=== PATIENT | male | born 2000 | race Caucasian/White ===

== ENCOUNTER 2023-01-18 18:17 | Emergency (ER) | payer BC, SELFPAY ==
--- NOTE | ~2023-01-18 | XR_ITS ---
EXAMINATION: XR HAND, LEFT CLINICAL INFORMATION: Boxer's fracture. COMPARISON: None available. TECHNIQUE: PA, lateral, and oblique views of the left hand. FINDINGS: Comminuted fracture of the proximal fifth phalanx with dorsal angulation of the distal fragment and mild impaction. No additional fractures. Carpal row alignment is maintained. Soft tissue swelling surrounding the fracture site. No unexpected radiopaque foreign bodies. XR/XR hand LT min 3V IMPRESSION: Comminuted fracture of the proximal fifth phalanx with mild angulation and impaction.
[2023-01-18 18:34] VITALS: BP 116/73; PULSE 60; RESP 16; TEMP 37; O2SAT 99; BMI 22.6
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
== END 2023-01-18 21:38 | disposition home or self-care (01) ==
PROVIDERS: Emergency Provider Emergency Medicine
DX: S62.617A Displaced fracture of proximal phalanx of left little finger, initial encounter for closed fracture (principal); W22.09XA Striking against other stationary object, initial encounter; Y93.89 Activity, other specified; Y92.9 Unspecified place or not applicable; Y99.9 Unspecified external cause status
CPT/HCPCS: 29130; 73130; 99282; 99283

== ENCOUNTER 2023-01-25 11:07 | Outpatient (AMB) | payer BC, SELFPAY ==
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
[2023-01-25 11:22] VITALS: BMI 22.5
== END 2023-01-25 11:54 | disposition home or self-care (01) ==
PROVIDERS: Visit Provider Physician Assistant
DX: S62.617A Displaced fracture of proximal phalanx of left little finger, initial encounter for closed fracture (principal)
CPT/HCPCS: 99204

== ENCOUNTER → 2023-01-25 11:07 | Outpatient (BNVA) | payer BC, SELFPAY | PROVIDERS: Visit Provider Physician Assistant ==

== ENCOUNTER 2023-01-29 08:58 | Day surgery (SDC) | payer BC, SELFPAY ==
--- NOTE | 2023-01-26 09:13 | P.CONAN_ITS ---
Documented by User: Delia Killian NP 01/26/23 09:14 HPI - Anesthesia Eval Consult details Narrative: 22yo M for Left Closed vs Open Reduction left small finger PMFSH Active Problems Active Problems: All Active Problems (Updated 01/25/23 @ 11:54 by Freddy Damian PA-C) Fracture of metacarpal of left hand, closed (Acute) Past Medical History Medical History (Updated 01/25/23 @ 11:54 by Freddy Damian PA-C) No pertinent past medical history Surgical History Surgical History (Updated 01/25/23 @ 11:16 by ABY Quintanilla) History of facial surgery Social History Social History (Updated 01/25/23 @ 11:16 by ABY Quintanilla) Patient Tobacco Use Status: Current everyday Tobacco user Tobacco use type: Cigarette Cigarettes Per Day: 8 Second Hand Smoke Exposure: No Use of substances other than those prescribed or required for medical reasons: No Are you DNR?: No Advance Directives: No Advance Directives Information Provided: Yes Advance Directives on File: No Current occupational status: employed 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, 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 Meds Allergies Allergy/AdvReac Type Severity Reaction Status Date / Time No Known Allergies Allergy Verified 01/25/23 11:15 Home Medications Medication Instructions Recorded Confirmed Last Taken Type No Known Home Meds 01/25/23 01/25/23 Unknown History Exam Exam Date and Time: January 26, [id number] Assessment and Plan Assessment Anesthesia Assessment: Chart Reviewed Documented by User: Bryce Thompson MD 01/29/23 11:27 PMFSH Past Medical History Medical History (Updated 01/25/23 @ 11:54 by Freddy Damian PA-C) No pertinent past medical history Family History Family history of problems with anesthesia: No Surgical History Surgical History (Updated 01/25/23 @ 11:16 by ABY Quintanilla) History of facial surgery History of Problems with Anesthesia: No Social History Social History (Updated 01/25/23 @ 11:16 by Viki Harris Roxana) Patient Tobacco Use Status: Current everyday Tobacco user Tobacco use type: Cigarette Cigarettes Per Day: 8 Second Hand Smoke Exposure: No Use of substances other than those prescribed or required for medical reasons: No Are you DNR?: No Advance Directives: No Advance Directives Information Provided: Yes Advance Directives on File: No Current occupational status: employed 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, 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 Meds Allergies Allergy/AdvReac Type Severity Reaction Status Date / Time No Known Allergies Allergy Verified 01/25/23 11:15 Home Medications Medication Instructions Recorded Confirmed Last Taken Type No Known Home Meds 01/25/23 01/25/23 Unknown History Exam Airway Mallampati Class: II TM Dist: >3cm Neck ROM: Full Heart: rrr Lungs: cta Assessment and Plan Assessment Anesthesia Assessment: Anesthesia Plan Discussed Final Anesthetic Review Family History of Problems with Anesthesia: No History of Problems with Anesthesia: No NPO: Yes ASA Class: II Final Preanesthetic Review: No Changes in Pt Med Stat, Meds/Allgs Chart Reviewed and Consent Obtained/Reviewed Patient Risk: Low Procedure Risk: Low Anesthetic Plan Anesthetic Plan: GA and Agree w/ Assess. and Plan Disposition: Standard PACU
[2023-01-29] VITALS (8 sets, daily range): BP systolic 109–129; BP diastolic 59–79; PULSE 53–72; RESP 16; TEMP 36.6–37.1; O2SAT 99–100; BMI 22.5
--- NOTE | ~2023-01-29 | FL_ITS ---
EXAMINATION: XR FLUOROSCOPY WITH IMAGES CLINICAL INFORMATION: Closed versus open reduction of small finger. COMPARISON: Previous left hand x-ray 01/18/2023 TECHNIQUE: Fluoroscopy Supervised By: Dr. Audrey Lisa. Fluoroscopy Time: 7.80. Cumulative Dose: 0.2079 mGy. DAP: 0.0126 Gycm2. Images: 3. FINDINGS: Images demonstrate 2 K wires or pins transfixing fracture of proximal phalanx fifth finger with improved alignment. FL/FL guidance in OR IMPRESSION: Across the guidance for ORIF of left fifth finger fracture
--- NOTE | 2023-01-29 08:14 | W.PM.OPN ---
Operative Note Operative Note Date of Service: 01/29/23 Narrative: Operative Note Narrative: Preop diagnosis: 1. left small finger proximal phalanx fracture Postop diagnosis: Same Procedure: 1. left small finger proximal phalanx fracture CRPP 2. Ulnar nerve block Surgeon: Audrey Lisa MD Anesthesia: General Anesthesia Findings: finger fracture Implants: 0.045 K-wires times x2 Tourniquet time: None EBL: Minimal Specimen: None Drains: None Complications: None Disposition: Brought to the recovery room in stable condition Plan: Follow-up in 10-14 days for a wound check, postop radiographs and for placement in a short-arm finger spica cast Anticipate K-wire removal in 4 weeks based on interval bony healing Educate the patient that full fracture healing anticipated in approximately 8-12 weeks. Indications: The patient is 22 years old with left small finger proximal phalanx fracture with displacement . The risks and benefits of operative treatment, including but not limited to risk of damage to blood vessels, nerves, tendons, infection, recurrence, delayed or nonunion of fracture, persistent pain or numbness, incomplete resolution of preoperative symptoms, or need for further surgery were discussed with the patient and they wished to proceed with surgery. Procedure: Once consent was obtained patient was brought back to the operating suite and placed in the operating table in a supine position. . Perioperative antibiotics and general anesthesia was administered by the anesthesia team. A tourniquet was applied to the proximal aspect of the left upper extremity and the limb was prepped and draped in a standard surgical fashion. Tourniquet was not inflated during the case. The FluoroScan was used during the case to assist with our fracture reduction and placement of all implants. A closed reduction was performed on the patient's left small finger proximal phalanx fracture. I placed the 1st 0.045 K-wire through the radial base of the left small finger proximal phalanx. This was advanced across the fracture site and into the shaft. A 2nd 0.045 K-wire was then advanced through the ulnar base of the small finger. It was also advanced across the fracture site and down the shaft of the proximal phalanx. Fracture alignment was assessed for both angular and rotational malalignment. Once satisfied with our fracture reduction and implant placement, the K-wires were bent and cut short and pin caps applied. Final fluoroscopic images were then obtained. The wounds were copiously irrigated with normal saline. An ulnar nerve block was then performed by infiltrating about the ulnar nerve at the wrist with some 1% lidocaine with epinephrine for postop pain control. A Sterile dressing and short volar splint extending to the forearm was applied. The patient appears to have tolerated the procedure well and with no complications. All digits were well vascularized at the conclusion of the case.
[2023-01-29] MEDS: Lactated Ringers 1,000 ML 100 ML IVCONT (09:30)
--- NOTE | 2023-01-29 15:06 | MHC.SHP ---
Pre-Procedural Eval Section A Date of Service: 01/29/23 The patient is an INPATIENT: No Changes since office visit: No Cold of Flu in the past 2 weeks, No New Medical Problems, No Changes in Medication and No Patient answered all questions The History & Physical has been completed within 30 days and I have reviewed it.: Yes Section B Chief Complaint: Displaced fracture of proximal phalanx of left lit Allergies: Allergies Allergy/AdvReac Type Severity Reaction Status Date / Time No Known Allergies Allergy Verified 01/25/23 11:15 Plan I have reviewed the history and physical and performed a pertinent physical examination on my patient. No changes have occurred unless specified. Time Spent With Patient Time: Total time managing care of this patient today ____ minutes.
== END 2023-01-29 16:24 | disposition home or self-care (01) ==
PROVIDERS: Visit Provider Orthopaedic Surgery
PROC: (CPT 26727; principal; 2023-01-29 10:30)
DX: S62.617A Displaced fracture of proximal phalanx of left little finger, initial encounter for closed fracture (principal); W22.09XA Striking against other stationary object, initial encounter; Y93.55 Activity, bike riding; Y92.821 Forest as the place of occurrence of the external cause; Y99.8 Other external cause status; Z98.890 Other specified postprocedural states; F17.210 Nicotine dependence, cigarettes, uncomplicated
CPT/HCPCS: 26727; J0690; J2405; J2795; J3010

== ENCOUNTER → 2023-01-29 08:58 | Outpatient (BNV) | payer BC, SELFPAY | PROVIDERS: Visit Provider Orthopaedic Surgery | DX: S62.617A Displaced fracture of proximal phalanx of left little finger, initial encounter for closed fracture (principal) | CPT/HCPCS: 26727 ==

== ENCOUNTER 2023-02-07 08:07 | Outpatient (REF) | payer BC, SELFPAY ==
--- NOTE | ~2023-02-07 | XR_ITS ---
EXAMINATION: XR HAND, LEFT CLINICAL INFORMATION: Pain out of splint COMPARISON: Left finger radiograph from 01/18/2023 TECHNIQUE: PA, lateral, and oblique views of the left hand. FINDINGS: Status post placement of 2 Amaya wires traversing/stabilizing known comminuted fifth proximal phalangeal comminuted fracture. Joint spaces and alignment are otherwise maintained. Soft tissues are unremarkable. XR/XR hand LT min 3V IMPRESSION: Status post placement of 2 Amaya wires traversing/stabilizing known comminuted fifth proximal phalangeal comminuted fracture.
== END 2023-02-07 08:08 | disposition home or self-care (01) ==
LOC: HO.HOSX 08:07
PROVIDERS: Visit Provider Physician Assistant
DX: S62.317D Displaced fracture of base of fifth metacarpal bone, left hand, subsequent encounter for fracture with routine healing (principal)
CPT/HCPCS: 29085; 73130

== ENCOUNTER 2023-02-07 10:38 | Outpatient (AMB) | payer BC, SELFPAY ==
--- NOTE | 2023-02-07 08:06 | A.OFFVIS_ITS ---
Intake Intake Visit Reasons: PO-Lt SM Finger ORIF vs CRPP 01/29 Intake Note: Nathanael ndiaye 22 year old male presents today for a post operative left small finger proximal phalanx fracture CRPP, DOS 01/29/23. Patient reports he is doing well, states some discomfort at pin site. Allergies No Known Allergies Allergy (Verified 02/07/23 10:45) HPI PO-Lt SM Finger ORIF vs CRPP 01/29 HPI Details 22-year-old male who returns to the [facility] today for post-op left small finger CRPP, 01/29/23. He continues to have mild discomfort in his finger but is doing well overall. He has no other concerns today. 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 There is no drainage. NVI. Office Procedures Casting/Splints 69840-Irum/Wrist Cast Application Procedure code (CPT) selection complete Results Reviewed Results Reviewed: Xrays were obtained in the office today and personally reviewed by me of the left hand show intact pinn with stable fracture reduction Assessment & Plan Assessment & Plan (1) Fracture of metacarpal of left hand, closed: Code(s): S62.309A - Unspecified fracture of unspecified metacarpal bone, initial encounter for closed fracture Qualifiers: Encounter type: subsequent encounter Metacarpal bone: fifth Metacarpal location: base Fracture healing: with routine healing Fracture alignment: displaced Qualified Code(s): S62.317D - Displaced fracture of base of fifth metacarpal bone, left hand, subsequent encounter for fracture with routine healing Plan Pins sites were cleaned and redressed. Anticipate K-wire removal in 4 weeks based on interval bony healing. Educated the patient that full fracture healing anticipated in approximately 8-12 weeks.He was placed in a short arm finger spica cast. No lifting more than cellphone with the left hand. He can return to work with no use of his left hand and he will see me back in 4 weeks cast off, x-rays and potential pin removal. Orders: Orders XR hand LT min 3V Today M79.642 - Pain in left hand Patient Instructions: Scribed for Freddy Damian PA-C, by Shabbir Quintanilla medical transport specialist, on 02/07/2023 at 10:45 AM EST. Rosa, Freddy Damian PA-C, have personally reviewed and agree with the information entered by the scribe. Coding Level of Care Code Global (62156) Diagnoses Closed displaced fracture of base of fifth metacarpal bone of left hand with routine healing, subsequent encounter S62.317D Encounter type: subsequent encounter Metacarpal bone: fifth Metacarpal location: base Fracture healing: with routine healing Fracture alignment: displaced CPT Codes Casting - CPT: 50095-Zauy/Wrist Cast Application ([id number])
== END 2023-02-07 12:14 | disposition home or self-care (01) ==
PROVIDERS: Visit Provider Physician Assistant
DX: S62.317D Displaced fracture of base of fifth metacarpal bone, left hand, subsequent encounter for fracture with routine healing (principal)
CPT/HCPCS: 29085; 99024

== ENCOUNTER 2023-03-07 09:10 | Outpatient (REF) | payer BC, SELFPAY ==
--- NOTE | ~2023-03-07 | XR_ITS ---
EXAMINATION: XR HAND, LEFT CLINICAL INFORMATION: Pain. COMPARISON: Prior radiographs, most recently 02/07/2023. TECHNIQUE: PA, lateral, and oblique views of the left hand. FINDINGS: There is mild disuse osteopenia. There is well-maintained alignment of fifth proximal phalangeal fracture fragments. Fracture lines of the fifth proximal phalanx are less well appreciated than was seen previously. A small periarticular calcification is seen adjacent to the fifth proximal interphalangeal joint. No dislocation is seen. The proximal and distal carpal rows are intact. There is mild generalized soft tissue swelling of the fifth finger, without gas or foreign body noted. XR/XR hand LT min 3V IMPRESSION: There is well-maintained alignment of a comminuted fracture of the left fifth proximal phalanx. No hardware failure or loosening is seen. Fracture lines are now less well appreciated than was noted previously, suggesting some interim healing.
== END 2023-03-07 09:11 | disposition home or self-care (01) ==
LOC: HO.HOSX 09:10
PROVIDERS: Visit Provider Physician Assistant
DX: S62.317D Displaced fracture of base of fifth metacarpal bone, left hand, subsequent encounter for fracture with routine healing (principal)
CPT/HCPCS: 73130

== ENCOUNTER 2023-03-07 10:17 | Outpatient (AMB) | payer BC, SELFPAY ==
--- NOTE | 2023-03-07 10:20 | A.OFFVIS_ITS ---
Intake Intake Visit Reasons: PO-Lt SM Finger CRPP 01/29-cast off w/xrays Intake Note: Nathanael ndiaye 22 year old 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 male presents today for a post operative left small finger proximal phalanx fracture CRPP, DOS 01/29/23. Cast off and xrays updated. Patient reports numbness in his DIP of his 4th and 3rd digits. Allergies No Known Allergies Allergy (Verified 03/07/23 10:34) HPI PO-Lt SM Finger CRPP 01/29-cast off w/xrays HPI Details 22-year-old male who returns to the [facility] today for post-op left small finger CRPP, 01/29/23. He states he has no pain but he does c/o numbness at the DIP of his 3rd and 4th digits. He is doing well overall and has no concerns today. 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 No redness or drainage. He is lacking about 2 degrees of extension in the small finger. He can make a closed fist however his ring and index finger flexion is 90 degrees at MCP and 45 degrees at PIP. Passively I can get him to 90 degrees. NVI. Results Reviewed Results Reviewed: Xrays were obtained in the office today and personally reviewed by me of the left hand show intact pinn with stable fracture reduction Assessment & Plan Assessment & Plan (1) Fracture of metacarpal of left hand, closed: Code(s): S62.309A - Unspecified fracture of unspecified metacarpal bone, initial encounter for closed fracture Qualifiers: Encounter type: subsequent encounter Fracture alignment: displaced Fracture healing: with routine healing Metacarpal bone: fifth Metacarpal location: base Qualified Code(s): S62.317D - Displaced fracture of base of fif th metacarpal bone, left hand, subsequent encounter for fracture with routine healing Plan Pins were removed in the office. Patient tolerated this procedure well. I encouraged him to avoid soaking the area for another 5 days. He can clean with warm soapy water tomorrow. He will avoid any type of lifting, pushing, pulling or carrying greater than a cellphone for the next 6 weeks. He will continue with light duty restrictions at work. 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 I would like to see him back in 6 week s with new x-rays, sooner if needed. Orders: Orders XR hand LT min 3V Today M79.642 - Pain in left hand OT Evaluation and Treatment Today S62.309A - Unspecified fracture of unspecified metacarpal bone, initial encounter for closed fracture Patient Instructions: Scribed for Freddy Damian PA-C, by Shabbir Quintanilla medical attendant, on 03/07/2023 at 10:30 AM EST. I, Freddy Damian PA-C, have personally reviewed and agree with the information entered by the scribe. Coding Level of Care Code Global (66387) Diagnoses Closed displaced fracture of base of fifth metacarpal bone of left hand with routine healing, subsequent encounter S62.317D Encounter type: subsequent encounter Fracture alignment: displaced Fracture healing: with routine healing Metacarpal bone: fifth Metacarpal location: base
== END 2023-03-07 11:03 | disposition home or self-care (01) ==
PROVIDERS: Visit Provider Physician Assistant
DX: S62.317D Displaced fracture of base of fifth metacarpal bone, left hand, subsequent encounter for fracture with routine healing (principal)
CPT/HCPCS: 99024

== ENCOUNTER 2023-03-16 14:30 | Outpatient (RCR) | payer BC, SELFPAY ==
--- NOTE | 2023-03-23 09:39 | MHC.OT.DC ---
[address] [phone] F: [phone] Occupational Therapy Discharge Note Patient Name: Nathanael Powers Provider: Freddy Damian Diagnosis: Left D5 prox phalanx fx, post-op CRPP 01/29/23 Date of Surgery: 01/29/23 Date of Evaluation: 03/09/23 Date of Discharge: 03/23/23 Treatments to Date: 4 Cancellations to Date: No Shows to Date: Discharge Status: Achieved Goals Improved Function Independent with HEP Discharge Summary: AROM improved and equal to PROM . Digit .5 cm to DPC PIP jt ext to 10 deg Pt is indep with his HEP . I anticipated continued improvement in ROM and hand strength with HEP and daily use Skilled OT not андрей Pt to schedule with Dermatology for nail condition and follow up with Orthopedics. Electronically Signed By: Alva Sandoval OT CHT CLT Reviewed/agree with student documentation: Therapist: Stacie Moseley, MIRANDAR/L CHT Please Sign and return to therapist, thank you for your referral.
== END 2023-03-23 09:40 | disposition home or self-care (01) ==
LOC: HO.OT 14:30
PROVIDERS: Visit Provider Physician Assistant
DX: S62.317D Displaced fracture of base of fifth metacarpal bone, left hand, subsequent encounter for fracture with routine healing (principal)
CPT/HCPCS: 29130; 97110; 97140; 97165

== ENCOUNTER 2023-03-21 06:00 | Outpatient (REF) | payer BC, SELFPAY ==
--- NOTE | ~2023-03-21 | XR_ITS ---
EXAMINATION: XR HAND, LEFT CLINICAL INFORMATION: Left hand pain. Fracture. COMPARISON: Multiple priors, most recent left hand radiographs dated 01/18/2023. TECHNIQUE: PA, lateral, and oblique views of the left hand. FINDINGS: Chronic 5th proximal phalangeal fracture in near-anatomic alignment. There is interval new bone/callus formation as well as periosteal reaction and osseous bridging. Exact degree of osseous bridging not well evaluated on plain radiographs. No significant persistent fracture line. No dislocation. No joint space narrowing or marginal osteophytes. Diffuse osteopenia. XR/XR hand LT min 3V IMPRESSION: Chronic 5th proximal phalangeal fracture in near-anatomic alignment with interval new bone/callus formation and osseous bridging. Exact degree of osseous bridging not well evaluated on plain radiographs.
== END 2023-03-21 06:01 | disposition home or self-care (01) ==
LOC: HO.HOSX 06:00
PROVIDERS: Visit Provider Physician Assistant
DX: S62.317D Displaced fracture of base of fifth metacarpal bone, left hand, subsequent encounter for fracture with routine healing (principal)
CPT/HCPCS: 73130

== ENCOUNTER 2023-03-21 07:50 | Outpatient (AMB) | payer BC, SELFPAY ==
--- NOTE | 2023-03-21 08:03 | A.OFFVIS_ITS ---
Intake Vital Signs 3 03/21/23 08:04 Height 5 ft 10 in Weight 160 lb BMI 23.0 Intake Visit Reasons: OV-Left Middle, RF infection? DOS 01/29/23 Intake Note: Nathanael ndiaye 22 year old male presents today for a follow up of left MF&RF s/p SF CRPP, DOS 01/29/23. Patient reports swelling at his DIP in his middle and ring fingers that is tender to the touch. States he continues to attend OT who suggested patient come in to be re-evaluated. Allergies No Known Allergies Allergy (Verified 03/21/23 08:11) HPI OV-Left Middle, RF infection? DOS 01/29/23 2 HPI0 Details 22-year-old male who returns to the [facility] today for a follow-up of left middle and ring finger s/p small finger CRPP, 01/29/23. He states he has swelling at his DIP in the middle and ring finger which is tender to touch. He continues to attend occupational therapy as instructed who recommended a f/u in our office due to concerns of the nail on the ring and middle finger. He is doing well with the small finger. He does not have a history of diabetes or gout. 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 No redness or swelling. He has full ROM of all digits. NVI. He does have discoloration of the ring and middle finger. No tenderness to palpation, No evidence of hematoma or necrosis. Results Reviewed Results Reviewed: Xrays were obtained in the office today and personally reviewed by me of the left hand show healing of the base of the 5th metacarpal fracture. No evidence of other bony abnormalities Assessment & Plan Assessment & Plan (1) Fracture of metacarpal of left hand, closed: Code(s): S62.309A - Unspecified fracture of unspecified metacarpal bone, initial encounter for closed fracture Qualifiers: Encounter type: subsequent encounter Fracture alignment: displaced F racture healing: with routine healing Metacarpal bone: fifth Metacarpal location: base Qualified Code(s): S62.317D - Displaced fracture of base of fifth metacarpal bone, left hand, subsequent encounter for fracture with routine healing Plan I had phone conversation with Dr. Lisa. We reviewed x-rays images and also some images of his nail. She is not concerned for any type of acute or chronic infection from the surgery. She does recommend that he see a warehouse shipping receiving clerk or his PCP to further evaluate this condition to determine whether it is fungal or any other problem. He is content with this plan and he will continue with occupational therapy for his left small finger. He will see me back as planned in April. Orders: Orders 2 XR hand LT min 3V Today M79.642 - Pain in left hand Referrals 2 Dermatology Referral L60.8 - Other nail disorders Patient Instructions: Scribed for Freddy Damian PA-C, by Shabbir Quintanilla medical or surgical instrument maker, on 03/21/2023 at 8:00 AM EST. IFreddy PA-C, have personally reviewed and agree with the information entered by the scribe. Coding Level of Care Code Global (29162) Diagnoses Closed displaced fracture of base of fifth metacarpal bone of left hand with routine healing, subsequent encounter S62.317D Encounter type: subsequent encounter Fracture alignment: displaced Fracture healing: with routine healing Metacarpal bone: fifth Metacarpal location: base
[2023-03-21 08:04] VITALS: BMI 23.0
== END 2023-03-21 10:24 | disposition home or self-care (01) ==
PROVIDERS: Visit Provider Physician Assistant
DX: S62.317D Displaced fracture of base of fifth metacarpal bone, left hand, subsequent encounter for fracture with routine healing (principal)
CPT/HCPCS: 99024

== ENCOUNTER 2023-04-18 15:19 | Outpatient (AMB) | payer BC, SELFPAY ==
--- NOTE | 2023-04-18 15:50 | A.OFFVIS_ITS ---
Intake Intake Visit Reasons: PO-Lt SM Finger CRPP 01/29/23 Allergies No Known Allergies Allergy (Verified 03/21/23 08:11) HPI PO-Lt SM Finger CRPP 01/29/23 HPI Details 22-year-old male who returns to the [facility] today for post-op left small finger CRPP, 01/29/23. He states he his finger deformity has worsened since his last visit. He currently reports he has swelling, redness and drainage for about 2 weeks. He also experiences pain with squeezing his finger. He has no other concerns today. 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 There is redness along the distal end of both ring and middle finger with serous/pus drainage. He has full ROM of all digits. NVI. Results Reviewed Results Reviewed: X-rays of the left hand obtained in the office today show a fracture well healed. Assessment & Plan Assessment & Plan (1) Fracture of metacarpal of left hand, closed: Code(s): S62.309A - Unspecified fracture of unspecified metacarpal bone, initial encounter for closed fracture Qualifiers: Encounter type: subsequent encounter Fracture alignment: displaced Fracture healing: with routine healing Metacarpal bone: fifth Metacarpal location: base Qualified Code(s): S62.317D - Displaced fracture of base of fifth metacarpal bone, left hand, subsequent encounter for fracture with routine healing Plan Dr. Lisa was available to see the patient with me today. 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 He was placed on Augmentin 500 mg twice a day for the next 14 days. He does have an appointment with Dermatology on April 26 which he will attend. He will see us back in 2 weeks for another follow-up, sooner if symptoms worsen. He will continue light duty restrictions until his next follow-up. Orders: Orders XR hand LT min 3V Today M79.642 - Pain in left hand Medications: New amoxicillin-pot clavulanate 500-125 mg (Augmentin) 1 tab PO BID 28 tabs 0RF 14 days Patient Instructions: Scribed for Freddy Damian PA-C, by Shabbir Quintanilla medical transcription supervisor, on 04/18/2023 at 3:30 PM EST. Rosa, Freddy Damian PA-C, have personally reviewed and agree with the information entered by the scribe. Coding Level of Care Code Est Pt Level 3 (81492) Diagnoses Closed displaced fracture of base of fifth metacarpal bone of left hand with routine healing, subsequent encounter S62.317D Encounter type: subsequent encounter Fracture alignment: displaced Fracture healing: with routine healing Metacarpal bone: fifth Metacarpal location: base
== END 2023-04-18 15:57 | disposition home or self-care (01) ==
PROVIDERS: Visit Provider Physician Assistant
DX: S62.317D Displaced fracture of base of fifth metacarpal bone, left hand, subsequent encounter for fracture with routine healing (principal)
CPT/HCPCS: 99024

== ENCOUNTER 2023-04-18 16:58 | Outpatient (REF) | payer BC, SELFPAY ==
--- NOTE | ~2023-04-18 | XR_ITS ---
EXAMINATION: XR HAND, LEFT CLINICAL INFORMATION: Pain in left hand, fifth digit. COMPARISON: Multiple prior radiographs of the left hand dated 02/07/2023, 03/07/2023, 03/21/2023 and 01/18/2023. TECHNIQUE: PA, lateral, and oblique views of the left hand including a single lateral view of left fifth digit. FINDINGS: The bones and soft tissues are normal aside from a healing fracture involving the middle phalanx of the fifth digit along with some soft tissue swelling at the DIP joints involving the second and third digits. No fracture. Alignment is anatomic. Joint spaces are maintained. No erosions or soft tissue calcifications. XR/XR hand LT min 3V IMPRESSION: Healing fracture involving the middle phalanx of the fifth digit.
== END 2023-04-18 16:59 | disposition home or self-care (01) ==
LOC: HO.HOSX 16:58
PROVIDERS: Visit Provider Physician Assistant
DX: S62.317D Displaced fracture of base of fifth metacarpal bone, left hand, subsequent encounter for fracture with routine healing (principal)
CPT/HCPCS: 73130

== ENCOUNTER 2023-05-03 14:41 | Outpatient (AMB) | payer BC, SELFPAY ==
--- NOTE | 2023-05-03 14:43 | A.OFFVIS_ITS ---
Intake Intake Visit Reasons: OV-Lt SM Finger CRPP 01/29/23 Intake Note: Nathanael ndiaye 22 year old male presents today for a follow up of left small finger CRPP on 01/29/23. Patient reports he continues to have drainage in his RF and MF. Denies pain. He was seen at OR dermatology and was prescribed doxycycline 100mg BID. Allergies No Known Allergies Allergy (Verified 05/03/23 15:06) HPI OV-Lt SM Finger CRPP 01/29/23 HPI Details 22-year-old male who returns to the [facility] today for a follow-up of left small finger CRPP, 01/29/23. He was seen by OR dermatology where doxycycline 100 mg was prescribed which he is taking as instructed. He states he has no pain and reports improvement in his swelling however he does c/o drainage in his ring and middle finger. He is doing well otherwise and has no concerns today. 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 There is redness along the distal end of both ring and middle finger without obvious pus/drainage. He has full ROM of all digits. NVI. Assessment & Plan Assessment & Plan (1) Fracture of metacarpal of left hand, closed: Code(s): S62.309A - Unspecified fracture of unspecified metacarpal bone, initial encounter for closed fracture Qualifiers: Encounter type: subsequent encounter Fracture alignment: displaced Fracture healing: with routine healing Metacarpal bone: fifth Metacarpal location: base Qualified Code(s): S62.317D - Displaced fracture of base of fifth metacarpal bone, left hand, subsequent encounter for fracture with routine healing Plan At this point there is no need for surgical intervention that would appreciate any acute infection. He will attend the appointment with dermatology tomorrow and continue taking doxycycline by them. If there are any bony related issues, he will see us back, otherwise as needed. Patient Instructions: Scribed for Freddy Damian PA-C, by Shabbir Quintanilla medical terminologist, on 05/03/2023 at 2:45 PM EST. Rosa, Freddy Damian PA-C, have personally reviewed and agree with the information entered by the scribe. Coding Level of Care Code Est Pt Level 3 (86373) Diagnoses Closed displaced fracture of base of fifth metacarpal bone of left hand with routine healing, subsequent encounter S62.317D Encounter type: subsequent encounter Fracture alignment: displaced Fracture healing: with routine healing Metacarpal bone: fifth Metacarpal location: base
== END 2023-05-03 15:07 | disposition home or self-care (01) ==
PROVIDERS: Visit Provider Physician Assistant
DX: S62.317D Displaced fracture of base of fifth metacarpal bone, left hand, subsequent encounter for fracture with routine healing (principal)
CPT/HCPCS: 99213

== ENCOUNTER → 2023-05-03 14:41 | Outpatient (BNVA) | payer BC, SELFPAY | PROVIDERS: Visit Provider Physician Assistant ==

== ENCOUNTER 2024-01-05 16:15 | Emergency (ER) | payer BC, SELFPAY ==
[2024-01-05 16:25] VITALS: BP 126/78; PULSE 79; RESP 16; TEMP 36.9; O2SAT 100; BMI 23.6
--- NOTE | 2024-01-05 16:26 | ED_ITS ---
HPI - General Adult General Chief complaint: Abdominal Pain Stated complaint: naseous/abd inj wondering if the cause? Time Seen by Provider: 01/05/24 20:50 History of Present Illness ED Provider: Mahesh COULTER narrative: The patient is a generally healthy 23-year-old male who says that about a week ago he tripped and fell and struck his abdomen on a piece of metal. He has noted some bruising on the skin of his abdomen but did not think he was badly hurt. Today however he felt weird. He had nausea but no vomiting. He also felt that he had numbness and tingling in his hands and in his feet. He was worried about this combination of symptoms and came to the emergency room. There was a long wait to be seen by an emergency room physician and during this time his symptoms have largely resolved. He has no significant abdominal pain currently. No back pain. He has had a normal appetite. Normal bowel and bladder movements. No fever, sweats, chills. Related Data Home Medications ?Medication ?Instructions ?Recorded ?Confirmed doxycycline monohydrate 100 mg 100 mg PO BID 05/03/23 capsule Previous Rx's ?Medication ?Instructions ?Recorded amoxicillin 500 mg-potassium 1 tab PO BID 14 days #28 tabs 04/18/23 clavulanate 125 mg tablet (Augmentin) Allergies Allergy/AdvReac Type Severity Reaction Status Date / Time No Known Allergies Allergy Verified 01/05/24 16:29 Review of Systems 2 Review of Systems: Yes all other systems are reviewed and are negative [facility] Past Medical History Medical History (Updated 01/06/24 @ 00:01 by Daniel Zapata) No pertinent past medical history Surgical History History of facial surgery Social History Social History Patient Tobacco Use Status: Current everyday Tobacco user Tobacco use type: Cigarette Cigarettes Per Day: 8 Second Hand Smoke Exposure: No Advance Directives: No Advance Directives Information Provided: No Current occupational status: employed 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 HENMT Other: Head and face are unremarkable. Mucous membranes are moist. Face is symmetrical. Eyes General: appearance normal, both eyes and all related structures Neck Neck: Yes full ROM Resp Effort & Inspection: normal respiratory effort Auscultation: clear to auscultation bilaterally Cardio Rate: regular rate Rhythm: regular rhythm Heart sounds: S1 normal heart sound present and S2 normal heart sound present GI Other: There is some slight yellowish discoloration to the skin of the abdomen near the umbilicus consistent with bruising of several days duration. The abdomen is flat and otherwise soft and nontender. General: Yes no CVA tenderness Back/Spine/Pelvis Back: no CVA tenderness Skin Other: Some yellowish bruising to the skin of the abdomen near the umbilicus. Otherwise the skin is unremarkable. Neuro Other: The patient is awake and alert with a normal mental status. Cranial nerves are grossly intact. Normal strength and sensation in all extremities. Normal coordination. Normal gait. Neurologically intact. Extrem Other: No peripheral edema Course Course Course Narrative: This is an RME: Additional HPI, ROS, PE not included below will be deferred to primary provider. RME assessment and note performed by: Nicole Haddad PA-C This is a [id number]-male who presents to the ER with complaints of abdominal pain x 1 week. While pt was in [place], he tripped and fell, unsure what he landed on. Reporting he did not hit his head or lose consciousness. Patient is not very forthcoming in regards to details. He does have some ecchymosis in the periumbilical region and reports that he has pain into his back. States that today he is feeling ?off?. He states that he is feeling nauseous. He is eating and drinking okay. He states that he was not medically evaluated as he ?was not peeing blood or having any bloody bowel movements . Plan: ER evaluation needed. Medical Decision Making Medical Decision Making MDM Narrative: the patient has sustained a direct blow to his abdomen a week ago. He has some abdominal skin bruising but otherwise his abdomen seems benign. Labs are all very normal and would argue against any significant acute intra-abdominal injury of several days duration. His history also does not suggest any likely surgical process. His symptoms have largely resolved while waiting. He seems to have an abdominal wall contusion but no other acute process. Lab Data 01/05/24 16:42 01/05/24 16:42 Labs: Lab Results 01/05/24 01/05/24 Range/Units 16:42 19:22 WBC 6.6 (4.8-10.8) X10*3/uL RBC 5.18 (4.60-5.80) X10*6/uL Hgb 16.0 (14.0-18.0) g/dl Hct 43.9 (42.0-52.0) % MCV 84.7 (80.0-98.0) fL MCH 30.9 (27.0-33.0) pg MCHC 36.4 H (31.0-36.0) g/dl RDW 11.7 (11.0-16.0) % Plt Count 276 (160-400) X10*3/uL MPV 8.6 L (9.4-12.4) fL Immature Gran % (Auto) 0.2 (0.0-0.4) % Neut % (Auto) 72.1 (45-73) % Lymph % (Auto) 20.7 (20-40) % [place] % (Auto) 6.1 (2-11) % Eos % (Auto) 0.3 (0-4) % Baso % (Auto) 0.6 (0-2) % Lymph # (Auto) 1.4 (1.2-4.9) X10*3/uL [place] # (Auto) 0.4 (0.1-1.2) X10*3/uL Eos # (Auto) 0.0 (0.0-0.4) X10*3/uL Baso # (Auto) 0.0 (0.0-0.2) X10*3/uL Abs Immat Gran (auto) 0.01 (0.00-0.03) X10*3/uL Absolute Neuts (auto) 4.8 (2.0-8.3) x10*3/uL Absolute Nucleated RBC 0.000 (0.0-0.012) X10*3/uL Nucleated RBC % (auto) 0.0 (0.0-0.2) /100WBC Sodium 141 (135-145) mmol/L Potassium 3.8 (3.3-5.1) mmol/L Chloride 107 (96-108) mmol/L Carbon Dioxide 26 (22-29) mmol/L Anion Gap 12 (12-20) BUN 11 (9-16) mg/dL Creatinine 1.02 (0.5-1.4) mg/dL Estim Creat Clear Calc 111.6 Estimated GFR > 60 Random Glucose 111 (60-115) mg/dL Calcium 10.2 (8.4-10.2) mg/dL Magnesium 2.1 (1.6-2.6) mg/dL Total Bilirubin 0.7 (0.0-1.0) mg/dL Direct Bilirubin 0.3 (0.0-0.5) mg/dL AST 20 (5-37) U/L ALT 19 (0-40) U/L Alkaline Phosphatase 65 (39-117) U/L Total Protein 8.3 H (6.5-8.0) g/dL Albumin 4.9 (3.5-5.0) g/dL Lipase 19 (8-78) U/L Urine Color Yellow Urine Appearance Clear Urine pH >= 9.0 (5.0-9.0) Ur Specific [place] 1.015 (1.005-1.025) Urine Protein Negative (Neg-Trace) mg/dL Urine Glucose (UA) Negative (Negative) mg/dL Urine Ketones Negative (Negative) mg/dL Urine Blood Negative (Negative) Urine Nitrite Negative (Negative) Ur Leukocyte Esterase Negative (Negative) Urine Opiates Screen Not Detected (Not Detect) Ur Buprenorphine Scrn Not Detected (Not Detect) ng/mL Ur Oxycodone Screen Not Detected (Not Detect) ng/mL Urine Methadone Screen Not Detected (Not Detect) ng/mL Urine Fentanyl Screen Not Detected (Not Detect) Ur Barbiturates Screen Not Detected (Not Detect) Ur Phencyclidine Scrn Not Detected (Not Detect) Ur Amphetamines Screen Not Detected (Not Detect) U Benzodiazepines Scrn Not Detected (Not Detect) Urine Cocaine Screen Not Detected (Not Detect) U Marijuana (THC) Screen Not Detected (Not Detect) Ethyl Alcohol < 10 mg/dL Influenza Type A (PCR) NEGATIVE (Negative) Influenza Type B (PCR) NEGATIVE (Negative) RSV RNA Qual (PCR) NEGATIVE (Negative) SARS-CoV-2 RNA (RT-PCR) NEGATIVE (Negative) Discharge Plan Discharge Clinical Impression: Nausea, Abdominal wall contusion Patient Disposition: Home, Self-Care Additional Instructions: Your blood testing and your urine testing in the emergency room today are reassuring. I think it is unlikely you have any dangerous intra-abdominal injury. If at any point you have worsening abdominal symptoms or a fever or vomiting please return to the emergency department for further evaluation. Also please work on getting a regular doctor. Prescriptions: No Action amoxicillin-pot clavulanate [Augmentin] 500-125 mg tablet 1 tab PO BID 14 Days Qty: 28 0RF doxycycline monohydrate 100 mg capsule 100 mg PO BID Interventions: ED Discharge Assessment Last Done: 01/05/24 21:06 Discharge Date/Time: 01/05/24 21:06 Print Language: [place] Kong[place]
[2024-01-05 16:49] LABS: Basophils Percent Auto 0.6 % (0-2); Eosinophils Percent Auto 0.3 % (0-4); Hematocrit 43.9 % (42.0-52.0); Imm Gran Abs Auto 0.01 X10*3/uL (0.00-0.03); Imm Gran Pct Auto 0.2 % (0.0-0.4); Lymphocytes Absolute Auto 1.4 X10*3/uL (1.2-4.9); Lymphocytes Percent Auto 20.7 % (20-40); MANUAL DIFF FLAG NO; Mean Corpuscular HGB Conc 36.4 g/dl (31.0-36.0); Mean Corpuscular Hemoglobin 30.9 pg (27.0-33.0); Mean Corpuscular Volume 84.7 fL (80.0-98.0); Mean Platelet Volume 8.6 fL (9.4-12.4); Monocytes Absolute Auto 0.4 X10*3/uL (0.1-1.2); Monocytes Percent Auto 6.1 % (2-11); Neutrophils Absolute Auto 4.8 x10*3/uL (2.0-8.3); Neutrophils Percent Auto 72.1 % (45-73); Platelet Count 276 X10*3/uL (160-400); Red Blood Count 5.18 X10*6/uL (4.60-5.80); Red Cell Distribution Width 11.7 % (11.0-16.0); White Blood Count 6.6 X10*3/uL (4.8-10.8)
[2024-01-05 17:01] LABS: Ethanol < 10 mg/dL
[2024-01-05 17:04] LABS: Alanine Aminotransferase 19 U/L (0-40); Albumin Level 4.9 g/dL (3.5-5.0); Alkaline Phosphatase 65 U/L (39-117); Anion Gap 12 (12-20); Aspartate Amino Transferase 20 U/L (5-37); Bilirubin Direct 0.3 mg/dL (0.0-0.5); Bilirubin Total 0.7 mg/dL (0.0-1.0); Blood Urea Nitrogen 11 mg/dL (9-16); Calcium 10.2 mg/dL (8.4-10.2); Carbon Dioxide 26 mmol/L (22-29); Chloride 107 mmol/L (96-108); Creatinine Clr Calc Pharmacy 111.6; Estimated Glomerular Filt Rate > 60; Glucose Random 111 mg/dL (60-115); Lipase 19 U/L (8-78); Magnesium 2.1 mg/dL (1.6-2.6); Potassium 3.8 mmol/L (3.3-5.1); Sodium 141 mmol/L (135-145); Total Protein 8.3 g/dL (6.5-8.0)
[2024-01-05 17:26] LABS: Influenza A PCR NEGATIVE (Negative); Influenza B PCR NEGATIVE (Negative); Resp Syncy Virus RNA Qual PCR NEGATIVE (Negative); SARS COV2 PCR INHOUSE NEGATIVE (Negative)
[2024-01-05 19:31] LABS: Appearance Urine Clear; Color Urine Yellow; Glucose Urine UA Negative (Negative); Leukocyte Esterase Urine Negative (Negative); Nitrite Urine Negative (Negative); PH >= 9.0 (5.0-9.0); Specific Gravity - Urine 1.015 (1.005-1.025); Urine Blood Negative (Negative); Urine Ketones Negative (Negative); Urine Protein Negative (Neg-Trace)
[2024-01-05 19:40] LABS: Amphetamine Screen Urine Not Detected (Not Detect); Barbiturates, Urine Not Detected (Not Detect); Benzodiazepines Screen Urine Not Detected (Not Detect); Buprenorphine Scr Not Detected (Not Detect); Cannabinoid Screen Urine Not Detected (Not Detect); Cocaine Screen Urine Not Detected (Not Detect); Fentanyl, urine Not Detected (Not Detect); Methadone Screen, Urine Not Detected (Not Detect); Opiate Screen Urine Not Detected (Not Detect); Oxycodone Screen Urine Not Detected (Not Detect); Phencyclidine Screen Urine Not Detected (Not Detect)
[2024-01-05 20:06] VITALS: BP 99/61; PULSE 56; RESP 18; TEMP 36.8; O2SAT 99
[2024-01-05 21:06] VITALS: BP 99/61; PULSE 56; RESP 18; TEMP 36.8; O2SAT 99
== END 2024-01-05 21:06 | disposition home or self-care (01) ==
PROVIDERS: Physician Assistant Medical; Emergency Provider Emergency Medicine
DX: S30.1XXA Contusion of abdominal wall, initial encounter (principal); W19.XXXA Unspecified fall, initial encounter; Y93.9 Activity, unspecified; Y92.9 Unspecified place or not applicable; Y99.9 Unspecified external cause status; R11.0 Nausea; R20.0 Anesthesia of skin; R20.2 Paresthesia of skin; Z03.818 Encounter for observation for suspected exposure to other biological agents ruled out
CPT/HCPCS: 0241U; 36415; 80048; 80076; 80307; 81003; 83690; 83735; 85025; 99283